=== PATIENT | female | born 2000 | race African-American/Black ===

== ENCOUNTER 2020-05-31 20:41 | Emergency (ER) | payer MEDICAID, OTHER ==
[~2020-05-31] VITALS: Ht 170.2 cm; Wt 79.4 kg
[~2020-05-31 20:41] MED LIST: diphenhdrAMINE HCL 25 MG CAP PO ONE
[2020-05-31 21:09] VITALS: BP 103/57
== END 2020-05-31 21:38 | disposition still patient (30) ==
LOC: ER 20:41
DX: O26.892 Other specified pregnancy related conditions, second trimester (principal); R10.9 Unspecified abdominal pain; Z3A.25 25 weeks gestation of pregnancy

== ENCOUNTER 2020-05-31 21:40 | Observation (INO) | payer MEDICAID ==
[~2020-05-31] VITALS: Ht 170.2 cm; Wt 79.4 kg
== END 2020-05-31 22:27 | disposition home or self-care (01) | DRG 566 ==
LOC: LDRP 21:40
PROVIDERS: ADMIT Specialist; ATTEND Specialist
DX: O26.892 Other specified pregnancy related conditions, second trimester (principal); R10.31 Right lower quadrant pain; Z3A.25 25 weeks gestation of pregnancy
CPT/HCPCS: 59025; 81002; G0378